=== PATIENT | male | born 1985 | race Caucasian/White ===

== ENCOUNTER 2021-03-03 00:24 | Emergency (ER) | payer OTHER | END 2021-03-03 01:15 | disposition home or self-care (01) | LOC: ER1 00:24 | DX: R11.2 Nausea with vomiting, unspecified (principal); R52 Pain, unspecified; F17.210 Nicotine dependence, cigarettes, uncomplicated; Z88.0 Allergy status to penicillin; Z90.49 Acquired absence of other specified parts of digestive tract; Z86.19 Personal history of other infectious and parasitic diseases | CPT/HCPCS: 99283 ==